=== PATIENT | male | born 1945 | race Caucasian/White ===

== ENCOUNTER 2022-11-10 12:56 | Emergency (ER) | payer OTHER ==
[~2022-11-10] VITALS: Ht 165.1 cm; Wt 65.0 kg
[2022-11-10 13:23] VITALS: BP 231/109; PULSE 53; RESP 20; TEMP 98; O2SAT 98
[2022-11-10] MEDS ORDERED: LABETALOL 20 MG/4 ML VIAL IVP ONE (13:35)
--- NOTE | 2022-11-10 13:46 | NUR ---
SIN AT BEDSIDE FOR EVALUATION
[2022-11-10] MEDS ORDERED: ACYCLOVIR 200 MG CAP PO ONE (13:55)
[2022-11-10] MEDS ORDERED: MORPHINE SULFATE 4 MG/ML SYR IVP ONE (13:55)
[2022-11-10] MEDS ORDERED: predniSONE 20 MG TAB PO ONE (13:55)
[2022-11-10] MEDS ORDERED: CLONIDINE HYDROCHLORIDE 0.1 MG TAB PO ONE (14:00)
[2022-11-10] MEDS ORDERED: hydrALAZINE 20 MG/ML VIAL IVP ONE ×2 (14:00→15:00)
[2022-11-10 14:02] LABS: BASOPHILS % (AUTO) 0.7 % (0.0-2.0); EOSINOPHILS # (AUTO) 0.1 K/uL (0-0.4); EOSINOPHILS % (AUTO) 1.6 % (0.0-4.0); HEMATOCRIT 42.1 % (36-52); HEMOGLOBIN 14.3 g/dL (12.0-18.0); LYMPHOCYTES # (AUTO) 1.1 K/uL (2.0-11.5); LYMPHOCYTES % (AUTO) 23.7 % (20.5-51.1); MEAN CORPUSCULAR HEMOGLOBIN 34 pg (27-31); MEAN CORPUSCULAR HGB CONC 34 g/dL (33-37); MEAN CORPUSCULAR VOLUME 98.9 fL (80-94); MONOCYTES # (AUTO) 0.4 K/uL (0.8-1.0); MONOCYTES % (AUTO) 9.2 % (1.7-9.3); NEUTROPHILS # (AUTO) 2.9 K/uL (1.8-7.7); NEUTROPHILS % (AUTO) 64.8 % (42.2-75.2); PLATELET COUNT (AUTO) 132 K/uL (140-450); RED BLOOD CELL COUNT(AUTO) 4.25 MIL/uL (4.20-6.10); RED CELL DISTRIBUTION WIDTH 14.6 % (11.6-13.7); WHITE BLOOD COUNT (AUTO) 4.5 K/uL (4.8-10.8)
[2022-11-10] MEDS ORDERED: ACET-5636 PO (14:02)
[2022-11-10] MEDS ORDERED: ACYC400T14 PO (14:02)
[2022-11-10] MEDS ORDERED: PRED20TA5 PO (14:02)
[2022-11-10] MEDS ORDERED: LISI-486 PO (14:03)
[2022-11-10 14:38] LABS: ANION GAP 15.3 (8-16); ASPARTATE AMINOTRANSFERASE 25 U/L (15-37); CARBON DIOXIDE 22.2 mmol/L (21-32); CHLORIDE 109 mmol/L (98-107); CREATININE 1.2 mg/dL (0.6-1.3); GLUCOSE 109 mg/dL (74-106); POTASSIUM 3.5 mmol/L (3.5-5.1); SODIUM SERUM 143 mmol/L (136-145); TOTAL BILIRUBIN 0.8 mg/dL (0.0-1.0); UREA NITROGEN, BLOOD 19 mg/dL (7-18)
--- NOTE | 2022-11-10 15:50 | NUR ---
PT ENDORSED TO LUKE CHARGE NURSE FOR LUNCH BREAK.
[2022-11-10] MEDS ORDERED: LORazepam 2 MG/ML VIAL IVP ONE (16:10)
[2022-11-10] MEDS ORDERED: ENALAPRILAT 2.5 MG/2 ML VIAL IVP ONE (16:15)
--- NOTE | 2022-11-10 16:58 | NUR ---
PT RESTING COMFORTABLY IN ROOM 10, SB HR 50, BP 136/63, R 19, PULSE OX 97% RA SON AT [facility]. PT WAS MEDICATED BY GEOGRAPHIC INFORMATION SYSTEM SURVEYOR WITH [employer]
[2022-11-10] MEDS ORDERED: ACET-5629 PO (17:08)
[2022-11-10 18:11] VITALS: BP 157/67; PULSE 60; RESP 17; TEMP 97.9; O2SAT 98
--- NOTE | 2022-11-10 18:11 | NUR ---
Patient discharged with v/s stable. Written and verbal after care instructions given and explained. Patient alert, oriented and verbalized understanding of instructions. Wheel Chair Assisted with to car. All questions addressed prior to discharge. ID band removed. Patient advised to follow up with PMD. Rx of OXYCODONE, ACYCLOVIR, LISINOPRIL, PREDNISONE given. Patient educated on indication of medication including possible reaction and side effects. Opportunity to ask questions provided and answered. INSTRUCTED PT/SON TO RETURN PT IF CONDITION WORSENS, OR TO CALL 911 FOR AN EMERGENCY. REVIEWED S&S OF STROKE WITH PT'S SON.
--- NOTE | 2022-11-10 19:03 | NUR ---
The patient's care was reviewed and supervised by LUKE WEEKS RN.
== END 2022-11-10 18:11 | disposition home or self-care (01) ==
LOC: MED 12:56
DX: B02.9 Zoster without complications (principal); I10 Essential (primary) hypertension; Z79.899 Other long term (current) drug therapy
CPT/HCPCS: 36415; 71045; 80053; 84484; 85025; 93005; 96374; 96375; 99285; J0360; J2060; J7512; Q0092; J2270; J3490